=== PATIENT | female | born 1950 | race Caucasian/White ===

== ENCOUNTER 2018-10-22 14:12 | Observation (INO) ==
[2018-10-22] MEDS ORDERED: Isovue-370 500 ML BOTTLE IVP ONE (14:31)
[2018-10-22 14:46] LABS: Hematocrit 39.1 % (35.3-44.9); Hemoglobin 12.8 g/dL (11.5-15.4); Mean Corpuscular HGB Conc 32.7 g/dL (31.6-35.5); Mean Corpuscular Hemoglobin 29.2 pg (28.0-33.3); Mean Corpuscular Volume 89.3 fL (83.0-100.0); Mean Platelet Volume 10.5 fL (9.4-12.4); Platelet Count 240 K/mcL (140-400); Red Blood Count 4.38 M/mcL (3.82-4.97); Red Cell Distribution Width 14.1 % (11.5-14.5)
[2018-10-22 14:58] LABS: INR 1.7; Prothrombin Time 18.9 Seconds (9.4-12.1)
[2018-10-22 15:03] LABS: Bilirubin,Urine Negative (Negative); Blood,Urine Negative (Negative); Clarity,Urine Clear (Clear); Color,Urine Yellow (Yellow); Glucose,Urine (UA) Normal (Normal); Ketones,Urine Negative (Negative); Leukocyte Esterase,Urine Moderate (Negative); Nitrite,Urine Negative (Negative); PH,Urine 6.5 pH Units (5.0-8.0); Protein,Urine Negative (Neg-Trace); Specific Gravity,Urine 1.011 (1.010-1.025); Urobilinogen,Urine Normal (Normal)
[2018-10-22 15:08] LABS: Bacteria,Urine Moderate per hpf (None-Few); Hyaline Casts,Urine None Seen per lpf (None-Few); RBC,Urine 0-3 per hpf (0-3); Squamous Epithelial Cell,Urine Moderate per lpf (None-Few)
--- NOTE | 2018-10-22 15:11 | Emergency Department Note ---
Disposition Clinical Impression: Transient cerebral ischemia Qualifiers: Transient cerebral ischemia type: unspecified Qualified Code(s): G45.9 - Transient cerebral ischemic attack, unspecified UTI (urinary tract infection) Qualifiers: Urinary tract infection type: acute cystitis Hematuria presence: without hematuria Qualified Code(s): N30.00 - Acute cystitis without hematuria Disposition: Admitted As Inpatient Condition: Good Referrals: Daljit Keyes DO [Primary Care Provider] - Forms: ED Satisfaction Letter Time of Disposition: 16:30 General Adult HPI - General Stated complaint: Dizzy, abnormal bp, slurred speech Time Seen by Provider: 10/22/18 14:22 Source: patient, family Mode of arrival: private vehicle Limitations: no limitations Nursing Notes Reviewed: Yes Vital Signs Reviewed: Yes - History of Present Illness HPI Narrative: 68F with Pmhx of diabetes, HTN, afib, that developed right leg weakness and slurred speech today at 1100. She states that she felt like she was having d ifficulty finding the right words, and was having trouble putting on her right sock and moving her right foot. She notes a previous stroke in 2012 with no residual deficits. She reports a remote hx of intracranial bleed in 1994. She takes Xarelto at night, took her dose last night. Initial NIHSS 2 for right lower leg ataxia and mild right lower limb weakness wherein the limb did not hit the bed but did drift before the end of five seconds. She is also complaining of labile blood pressures and blood sugars for the last two weeks with associated dizziness. Pain Scale: 0 - Related Data Home Medications Medication Instructions Recorded Confirmed Albuterol Sulfate [Proair Hfa] 2 puff IH Q4H PRN 10/22/18 10/22/18 Benazepril HCl 20 mg PO BID 10/22/18 10/22/18 Cyclobenzaprine [Flexeril] 10 mg PO TID PRN 10/22/18 10/22/18 Doxazosin Mesylate [Cardura] 2 mg PO BID 10/22/18 10/22/18 Fenofibrate Nanocrystallized 80 mg PO BID 10/22/18 10/22/18 [Fenofibrate] Hydralazine HCl 50 mg PO BID 10/22/18 10/22/18 Insulin Glargine,Hum.rec.anlog 20 unit SQ HS 10/22/18 10/22/18 [Lantus Solostar] Insulin LISPRO [Humalog Kwikpen 0 unit SQ TIDWM 10/22/18 10/22/18 U-100] Ipratropium/Albuterol Neb [Duoneb] 3 ml IH Q6HR PRN 10/22/18 10/22/18 Levothyroxine Sodium 50 mcg PO 0630 10/22/18 10/22/18 Metoprolol Tartrate 100 mg PO BID 10/22/18 10/22/18 Multivit-Min/FA/Lycopen/Lutein 1 each PO DAILY 10/22/18 10/22/18 [Centrum Silver Tablet] Omeprazole [PriLOSEC] 20 mg PO DAILY 10/22/18 10/22/18 Rivaroxaban [Xarelto] 20 mg PO QPM 10/22/18 10/22/18 Torsemide [Demadex] 20 mg PO BID 10/22/18 10/22/18 Allergies Allergy/AdvReac Type Severity Reaction Status Date / Time prednisone Allergy See Verified 10/08/17 08:52 Comments Review of Systems: In addition to that documented in the HPI above, the additional ROS was obtained: Constitutional: Denies fevers or chills Eyes: Denies vision changes ENMT: Denies sore throat CV: Denies chest pain Resp: Denies SOB GI: Denies vomiting or diarrhea : Denies painful urination MSK: Denies recent trauma Skin: Denies new rashes Neuro: Denies new numbness or tingling Reports: new right leg/foot weakness, difficulty with word finding since 1100 today Endocrine: Denies unexpected weight loss Heme: Denies bleeding disorders Past Medical History - Past Medical History Attestation: Yes The following information was validated with the patient. Medical history: Reports: arthritis, asthma, atrial fibrillation, CHF, COPD, CVA, diabetes, GERD, hyperlipidemia, hypertension, thyroid disease Surgical history: Reports: appendectomy, hysterectomy, thyroidectomy Psychiatric history: Reports: no psych history - Social History Smoking Status: Never smoker Alcohol use: Reports: none Drug use: Reports: none Physical Exam General: A&O x 3. Appears anxious. Well developed, well nourished. Head: atraumatic, normocephalic. ENT: No conjunctival injection, no scleral icterus. EOMI. Oropharynx non- erythematous. mucous membranes moist. Neuro: No speech deficit, no facial droop, mentating well. BUE Str 5/5. LLE Str 5/5, RLE Str 4/5. CN II, IV-XII intact. CN III not intact - pupils do not react to light or accommodation bilaterally. Cerebellar testing intact with [id number], but with heel to napoles, has some difficulty with right leg moving against left napoles. NIHSS 2. Pulm: Lungs CTAB A/P. No wheezes, rales, ronchi. Cardio: RRR no m/r/g. Chest not tender to palpation. Abd: Soft, non-distended. Normoactive bowel sounds. Non-tender to palpation. No guarding. Non rigid. Extremities: Radial pulses 2+ vicente, dorsalis pedis/posterior tibialis 2+ vicente. No LE edema. No cyanosis, clubbing. Skin: warm, dry, intact. No rashes. Psych: Appropriate mood and affect. Answers questions appropriately. Cooperative with exam. - General General appearance: alert, in no apparent distress Course - Consultations Consultation #1: Spoke with Dr. Nixon Syed, Nephrology, about the pt's renal function and administration of contrast during stroke workup with CTA. He advised fluids, holding nephrotoxic medications such as YELENA/ARB, COX2 inhibitors, and diuretics. Will consult his service with formal consult order. Time: 15:42 Consultation #2: Spoke with Dr. Brandon Motley, neurology, and advised them that patient was here for stroke/tia workup. Time: 16:30 Vital Signs Temperature 98.2 F 10/22/18 14:28 Pulse Rate 112 10/22/18 14:28 Respiratory Rate 15 10/22/18 14:28 Blood Pressure 160/99 10/22/18 14:28 O2 Sat by Pulse Oximetry 98 10/22/18 14:28 Temperature 98.2 F 10/22/18 14:28 Pulse Rate 93 10/22/18 15:00 Respiratory Rate 15 10/22/18 15:00 Blood Pressure 180/60 10/22/18 15:00 O2 Sat by Pulse Oximetry 98 10/22/18 14:28 Oxygen Delivery Oxygen Delivery Room Air Medical Decision Making - [facility] Narrative Medical decision making narrative: [facility] neurology was consulted and Dr. Lamont Boogie responded and performed a bedside neurologic exam with the stroke robot. He came to the same conclusion we did that she was not a candidate for tPA, had a low NIHSS of 2, did not need to be transferred to [facility] for further workup, but could benefit from an inpatient admission here for further neurologic workup. Pt was given 1L NaCl and 325 PO ASA while in the department as well as 1g of rocephin while in the department for presumed UTI. I consulted nephrology and neurology, see course for full details of consults. Pt was admitted to hospitalist, Dr Brambila, who agreed to accept the pt to their service. Spoke directly with admitting physician and communicated the results and recommendations from the consults. Patient was give n an opportunity to ask questions at bedside and all of their concerns were addressed. Patient verbalized understanding and agreement with plan of care. Pt remained stable while in the department. - Medical Records Medical records reviewed: Yes I reviewed the patient's medical records. - Lab Data Lab results reviewed: Yes I reviewed the patient's lab results. Result diagrams: 10/22/18 14:35 10/22/18 14:35 Lab Results 10/22/18 10/22/18 10/22/18 Range/Units 14:35 14:35 14:35 WBC 6.7 (4.3-11.1) K/mcL RBC 4.38 (3.82-4.97) M/mcL Hgb 12.8 (11.5-15.4) g/dL Hct 39.1 (35.3-44.9) % MCV 89.3 (83.0-100.0) fL MCH 29.2 (28.0-33.3) pg MCHC 32.7 (31.6-35.5) g/dL RDW 14.1 (11.5-14.5) % Plt Count 240 (140-400) K/mcL MPV 10.5 (9.4-12.4) fL PT 18.9 H (9.4-12.1) Seconds INR 1.7 APTT 37.0 H (26.0-36.0) Seconds Sodium 138 (136-145) mEq/L Potassium 3.4 L (3.5-5.1) mEq/L Chloride 95 L (98-107) mEq/L Carbon Dioxide 33 H (23-29) mEq/L BUN 53 H (8-23) mg/dL Creatinine 1.64 H (0.60-1.20) mg/dL Est GFR ( Amer) 38 L (> 60) Est GFR (Non-Af Amer) 31 L (> 60) BUN/Creatinine Ratio 32 H (6-26) Glucose 204 H (70-105) mg/dL Calculated Osmolality 306 H (280-300) Calcium 9.6 (8.6-10.3) mg/dL Magnesium 2.1 (1.6-2.6) mg/dL Troponin I 0.03 (< 0.04) ng/mL Urine Color (Yellow) Urine Clarity (Clear) Urine pH (5.0-8.0) pH Units Ur Specific [place] (1.010-1.025) Urine Protein (Neg-Trace) mg/dL Urine Glucose (UA) (Normal) mg/dL Urine Ketones (Negative) mg/dL Urine Blood (Negative) Urine Nitrite (Negative) Urine Bilirubin (Negative) Urine Urobilinogen (Normal) mg/dL Ur Leukocyte Esterase (Negative) Urine Microscopic RBC (0-3) per hpf Urine Microscopic WBC (0-3) per hpf Ur Squamous Epith Cells (None-Few) per lpf Urine Bacteria (None-Few) per hpf Hyaline Casts (None-Few) per lpf Ur Culture Indicated? (NO) 10/22/18 Range/Units 14:52 WBC (4.3-11.1) K/mcL RBC (3.82-4.97) M/mcL Hgb (11.5-15.4) g/dL Hct (35.3-44.9) % MCV (83.0-100.0) fL MCH (28.0-33.3) pg MCHC (31.6-35.5) g/dL RDW (11.5-14.5) % Plt Count (140-400) K/mcL MPV (9.4-12.4) fL PT (9.4-12.1) Seconds INR APTT (26.0-36.0) Seconds Sodium (136-145) mEq/L Potassium (3.5-5.1) mEq/L Chloride (98-107) mEq/L Carbon Dioxide (23-29) mEq/L BUN (8-23) mg/dL Creatinine (0.60-1.20) mg/dL Est GFR ( Amer) (> 60) Est GFR (Non-Af Amer) (> 60) BUN/Creatinine Ratio (6-26) Glucose (70-105) mg/dL Calculated Osmolality (280-300) Calcium (8.6-10.3) mg/dL Magnesium (1.6-2.6) mg/dL Troponin I (< 0.04) ng/mL Urine Color Yellow (Yellow) Urine Clarity Clear (Clear) Urine pH 6.5 (5.0-8.0) pH Units Ur Specific Cisco 1.011 (1.010-1.025) Urine Protein Negative (Neg-Trace) mg/dL Urine Glucose (UA) Normal (Normal) mg/dL Urine Ketones Negative (Negative) mg/dL Urine Blood Negative (Negative) Urine Nitrite Negative (Negative) Urine Bilirubin Negative (Negative) Urine Urobilinogen Normal (Normal) mg/dL Ur Leukocyte Esterase Moderate H (Negative) Urine Microscopic RBC 0-3 (0-3) per hpf Urine Microscopic WBC 5-15 H (0-3) per hpf Ur Squamous Epith Cells Moderate H (None-Few) per lpf Urine Bacteria Moderate H (None-Few) per hpf Hyaline Casts None Seen (None-Few) per lpf Ur Culture Indicated? YES A (NO) - Radiology Data Radiology results reviewed: Yes I reviewed the patient's radiology results. Chest X-Ray 10/22/18 14:31 IMPRESSION: No acute cardiopulmonary findings. D/ / Diana Lopez MD / Diana Lopez MD Interpreting Provider: Diana Lopez MD Head CT 10/22/18 14:31 IMPRESSION: 1. No acute intracranial abnormality. These findings were discussed with Todd Lopez at 2:48 p.m. 10/22/2018. 2. Chronic small vessel ischemic disease. D/ / Sathish Luo MD / Sathish Luo MD Interpreting Provider: Sathish Luo MD Head CTA 10/22/18 14:31 IMPRESSION: 1. Approximately 40% right and 50% left internal carotid artery stenosis by NASCET criteria. 2. Mild to moderate bilateral cavernous carotid artery stenosis due to calcified atherosclerotic disease. 3. 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 4. No additional hemodynamically significant stenosis or branch occlusion in the intracranial arterial circulation. D/ / 10/22/2018 15:23:39 David Harrington MD / aleksandra Interpreting Provider: David Harrington MD Neck CTA 10/22/18 14:32 IMPRESSION: 1. Approximately 40% right and 50% left internal carotid artery stenosis by NASCET criteria. 2. Mild to moderate bilateral cavernous carotid artery stenosis due to calcified atherosclerotic disease. 3. 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 4. No additional hemodynamically significant stenosis or branch occlusion in the intracranial arterial circulation. D/ / 10/22/2018 15:23:39 David Harrington MD / aleksandra Interpreting Provider: David Harrington MD - EKG Data EKG #1 EKG attestation: Yes I reviewed and interpreted this EKG. EKG results narrative: Heart rate 88, rhythm sinus, axis normal. NE 217 and prolonged, QRS 146 and prolonged, QTc 527 and prolonged. LBBB present, no clinically significant ST elevation or depression based on Sgarbossa's criteria. Attestation Statement - Attestation Attestation: I, Todd Lopez DO, examined this patient [id number] and my medical decision-making was reviewed with Dr. Aleida Johnson, Resident Physician. I agree with the documented findings, disposition and treatment plan as described except to the extent set forth below. I personally supervised and was present for the ventura/critical portions of the procedures completed by the resident documented below. Please see my progress notes for details. NIH Stroke Scale - Level of Consciousness LOC: Alert - LOC Questions LOC Questions: Answers both correctly - LOC Commands LOC Commands: Performs both correctly - Best Gaze Best Gaze: Normal - Visual Visual: No visual loss - Facial Palsy Facial Palsy: Normal - Motor Arms Motor Arm-Left: No drift for 10 seconds Motor Arm-Right: No drift for 10 seconds - Motor Legs Motor Leg-Left: No drift for 5 seconds Motor Leg-Right: Drift, does NOT hit bed - Limb Ataxia Limb Ataxia: Present in ONE limb - Sensory Sensory: Normal - Best Language Best Language: No aphasia - Dysarthria Dysarthria: Normal - Extinction and Inattention Extinction and Inattention: Normal - NIHSS Total Score NIHSS Total Score: 2
--- NOTE | 2018-10-22 15:20 | Emergency Department Note ---
Disposition Clinical Impression: UTI (urinary tract infection) Transient cerebral ischemia Qualifiers: Transient cerebral ischemia type: unspecified Qualified Code(s): G45.9 - Transient cerebral ischemic attack, unspecified Disposition: Admitted As Inpatient Condition: Good Referrals: Daljit Keyes DO [Primary Care Provider] - Forms: ED Satisfaction Letter Time of Disposition: 17:01 General Adult HPI - General Chief complaint: ED Neuro Symptoms/Deficit Stated complaint: Dizzy, abnormal bp, slurred speech Time Seen by Provider: 10/22/18 14:22 Source: patient, family Mode of arrival: private vehicle Limitations: no limitations - History of Present Illness Pain Scale: 0 - Related Data Home Medications Medication Instructions Recorded Confirmed Albuterol Sulfate [Proair Hfa] 2 puff IH Q4H PRN 10/22/18 10/22/18 Benazepril HCl 20 mg PO BID 10/22/18 10/22/18 Cyclobenzaprine [Flexeril] 10 mg PO TID PRN 10/22/18 10/22/18 Doxazosin Mesylate [Cardura] 2 mg PO BID 10/22/18 10/22/18 Fenofibrate Nanocrystallized 80 mg PO BID 10/22/18 10/22/18 [Fenofibrate] Hydralazine HCl 50 mg PO BID 10/22/18 10/22/18 Insulin Glargine,Hum.rec.anlog 20 unit SQ HS 10/22/18 10/22/18 [Lantus Solostar] Insulin LISPRO [Humalog Kwikpen 0 unit SQ TIDWM 10/22/18 10/22/18 U-100] Ipratropium/Albuterol Neb [Duoneb] 3 ml IH Q6HR PRN 10/22/18 10/22/18 Levothyroxine Sodium 50 mcg PO 0630 10/22/18 10/22/18 Metoprolol Tartrate 100 mg PO BID 10/22/18 10/22/18 Multivit-Min/FA/Lycopen/Lutein 1 each PO DAILY 10/22/18 10/22/18 [Centrum Silver Tablet] Omeprazole [PriLOSEC] 20 mg PO DAILY 10/22/18 10/22/18 Rivaroxaban [Xarelto] 20 mg PO QPM 10/22/18 10/22/18 Torsemide [Demadex] 20 mg PO BID 10/22/18 10/22/18 Allergies Allergy/AdvReac Type Severity Reaction Status Date / Time prednisone Allergy See Verified 10/08/17 08:52 Comments Past Medical History - Past Medical History Medical history: Reports: arthritis, asthma, atrial fibrillation, CHF, COPD, CVA, diabetes, GERD, hyperlipidemia, hypertension, thyroid disease Surgical history: Reports: appendectomy, hysterectomy, thyroidectomy Psychiatric history: Reports: no psych history - Social History Smoking Status: Never smoker Alcohol use: Reports: none Drug use: Reports: none Physical Exam - General Limitations: no limitations General appearance: alert, in no apparent distress Course Vital Signs Temperature 98.2 F 10/22/18 14:28 Pulse Rate 112 10/22/18 14:28 Respiratory Rate 15 10/22/18 14:28 Blood Pressure 160/99 10/22/18 14:28 O2 Sat by Pulse Oximetry 98 10/22/18 14:28 Temperature 98.2 F 10/22/18 14:28 Pulse Rate 93 10/22/18 15:00 Respiratory Rate 15 10/22/18 15:00 Blood Pressure 180/60 10/22/18 15:00 O2 Sat by Pulse Oximetry 98 10/22/18 14:28 Oxygen Delivery Oxygen Delivery Room Air Medical Decision Making - Lab Data Result diagrams: 10/22/18 14:35 10/22/18 14:35 Lab Results 10/22/18 10/22/18 10/22/18 Range/Units 14:35 14:35 14:35 WBC 6.7 (4.3-11.1) K/mcL RBC 4.38 (3.82-4.97) M/mcL Hgb 12.8 (11.5-15.4) g/dL Hct 39.1 (35.3-44.9) % MCV 89.3 (83.0-100.0) fL MCH 29.2 (28.0-33.3) pg MCHC 32.7 (31.6-35.5) g/dL RDW 14.1 (11.5-14.5) % Plt Count 240 (140-400) K/mcL MPV 10.5 (9.4-12.4) fL PT 18.9 H (9.4-12.1) Seconds INR 1.7 APTT 37.0 H (26.0-36.0) Seconds Sodium 138 (136-145) mEq/L Potassium 3.4 L (3.5-5.1) mEq/L Chloride 95 L (98-107) mEq/L Carbon Dioxide 33 H (23-29) mEq/L BUN 53 H (8-23) mg/dL Creatinine 1.64 H (0.60-1.20) mg/dL Est GFR ( Amer) 38 L (> 60) Est GFR (Non-Af Amer) 31 L (> 60) BUN/Creatinine Ratio 32 H (6-26) Glucose 204 H (70-105) mg/dL Calculated Osmolality 306 H (280-300) Calcium 9.6 (8.6-10.3) mg/dL Magnesium 2.1 (1.6-2.6) mg/dL Troponin I 0.03 (< 0.04) ng/mL Urine Color (Yellow) Urine Clarity (Clear) Urine pH (5.0-8.0) pH Units Ur Specific [place] (1.010-1.025) Urine Protein (Neg-Trace) mg/dL Urine Glucose (UA) (Normal) mg/dL Urine Ketones (Negative) mg/dL Urine Blood (Negative) Urine Nitrite (Negative) Urine Bilirubin (Negative) Urine Urobilinogen (Normal) mg/dL Ur Leukocyte Esterase (Negative) Urine Microscopic RBC (0-3) per hpf Urine Microscopic WBC (0-3) per hpf Ur Squamous Epith Cells (None-Few) per lpf Urine Bacteria (None-Few) per hpf Hyaline Casts (None-Few) per lpf Ur Culture Indicated? (NO) 10/22/18 Range/Units 14:52 WBC (4.3-11.1) K/mcL RBC (3.82-4.97) M/mcL Hgb (11.5-15.4) g/dL Hct (35.3-44.9) % MCV (83.0-100.0) fL MCH (28.0-33.3) pg MCHC (31.6-35.5) g/dL RDW (11.5-14.5) % Plt Count (140-400) K/mcL MPV (9.4-12.4) fL PT (9.4-12.1) Seconds INR APTT (26.0-36.0) Seconds Sodium (136-145) mEq/L Potassium (3.5-5.1) mEq/L Chloride (98-107) mEq/L Carbon Dioxide (23-29) mEq/L BUN (8-23) mg/dL Creatinine (0.60-1.20) mg/dL Est GFR ( Amer) (> 60) Est GFR (Non-Af Amer) (> 60) BUN/Creatinine Ratio (6-26) Glucose (70-105) mg/dL Calculated Osmolality (280-300) Calcium (8.6-10.3) mg/dL Magnesium (1.6-2.6) mg/dL Troponin I (< 0.04) ng/mL Urine Color Yellow (Yellow) Urine Clarity Clear (Clear) Urine pH 6.5 (5.0-8.0) pH Units Ur Specific [place] 1.011 (1.010-1.025) Urine Protein Negative (Neg-Trace) mg/dL Urine Glucose (UA) Normal (Normal) mg/dL Urine Ketones Negative (Negative) mg/dL Urine Blood Negative (Negative) Urine Nitrite Negative (Negative) Urine Bilirubin Negative (Negative) Urine Urobilinogen Normal (Normal) mg/dL Ur Leukocyte Esterase Moderate H (Negative) Urine Microscopic RBC 0-3 (0-3) per hpf Urine Microscopic WBC 5-15 H (0-3) per hpf Ur Squamous Epith Cells Moderate H (None-Few) per lpf Urine Bacteria Moderate H (None-Few) per hpf Hyaline Casts None Seen (None-Few) per lpf Ur Culture Indicated? YES A (NO) Attestation Statement - Attestation Attestation: I, Todd Lopez DO, examined this patient [id number] and my medical decision-making was reviewed with Dr. Aleida Johnson, Resident Physician. I agree with the documented findings, disposition and treatment plan as described except to the extent set forth below. I personally supervised and was present for the ventura/critical portions of the procedures completed by the resident documented below. Please see my progress notes for details. 68-year-old female presents emergency room for evaluation of difficulty with speech. Patient also symptoms approximately 11:00 this morning. She she describes them as difficulty with finding words and getting them out of her mouth. She also had some appreciable ataxia to the right upper and right lower extremity. She denies any history of stroke. She does have a poorly controlled blood pressure history. She is currently denying chest pain or shortness of breath. She has not had any nausea vomiting or diarrhea. She had intermittent blurry vision. Denies any headache at this time. Patient has not fallen or injured herself. She has been taking all of your home medications as they are prescribed. Because of the described complaints and timeframe the patient had immediate stroke alert called. Patient will be taken to CT scan for CT angiog deidra of the head and neck and then point CT of the head along with consult with [facility]. NIH stroke scale that was collected on initial presentation was a 2. Patient is otherwise resting comfortably in the bed. She is tangential in conversation wall evaluating her. Her pupils are equal round reactive extracted muscles are intact. Oropharynx is patent. Trachea is midline. Lungs are clear heart is regular. Abdomen is soft no pulsatile masses or lesions. Extremities are otherwise normal outside of the above-mentioned findings during the stroke evaluation. No signs of pitting edema or swelling. Pulses are intact and patient is appropriate and mentating appropriately at this time. Disposition will be completed after full workup and treatment course I been established. See detailed documentation the physical exam, medical intervention, medical decision-making and disposition in the resident physician's note. 45 minutes of critical care will be applied the patient's treatment course secondary to multidisciplinary intervention as well as consideration for TPA and thrombolytic. 1515 Patient was reviewed by the on-call neurologist Dr. ramos from [facility]. Patient is on Xarelto. No TPA is recommended at this point. Patient was CT angiographies completed and admission process established. Does not appear to be a large vessel related lesion at this point. Patient will be evaluated for other potential sources including infection show abnormality. Disposition pending. Patient does have chronic renal insufficiency with a GFR 31. Nephrology will be consult that secondary to the history of renal insufficiency as well as the contrast being provided here today to evaluate for stroke treatment. Patient will be provided with fluids and magnesium will be tested secondary to the slightly low potassium the patient will be treated for acute urinary tract infection. Disposition pending full workup. Patient will most likely require admission. 1635 Patient is otherwise stable. Hospitalist Dr. krause. Patient has been provided with an aspirin here in the emergency room. No other emergent intervention is required. Patient is otherwise clinically stable will be admitted at this time for strokelike presentation with possible urinary tract infection. Patient has baseline laboratory evaluation. Potassium will not be provided yet at this time until the remainder the labs are collected. Patient is otherwise clinically stable with urinary tract infection and generalized malaise along with concern for possible TIA. Patient will be monitored here in the emergency department until the admission process is completed.
[2018-10-22 15:24] LABS: Troponin I 0.03 ng/mL (< 0.04)
[2018-10-22] MEDS ORDERED: Aspirin 325 MG TABLET PO ONE (15:30)
[2018-10-22 15:34] LABS: Calcium 9.6 mg/dL (8.6-10.3); Potassium 3.4 mEq/L (3.5-5.1)
[2018-10-22] MEDS ORDERED: 0.9 % Sodium Chloride 1,000 ML IVC ONE (15:36)
[2018-10-22] MEDS ORDERED: cefTRIAXone 1,000 MG in Water for inj. (sterile) 20 ML 10 ML IVP ONE (15:36)
--- NOTE | 2018-10-22 16:17 | Internal Med History&Physical ---
Date of Encounter: 10/22/18 Time of Encounter: 16:13 Internal Medicine - H&P: HPI Chief complaint: slurred speech Admitted From: Emergency Dept History of present illness: Ms. Gambino is a 68 year old female atrial fibrillation, CHF, COPD, CVA in 2012 with no residual deficit, diabetes, GERD, hyperlipidemia, diabetes mellitus, hypertension, thyroid disease Was brought to ER with complaint of sudden development of right leg weakness and slurred speech today at 1100. She states that she felt like she was having difficulty finding the right words, and was having trouble putting on her right sock and moving her right foot. In the ER patient was found to be hypertensive slight tachycardia, initial lab with no acute finding except slight elevated creatinine, high blood glucose level, abnormal urine analysis. Chest x-ray with no acute finding. CT angiography head and neck with no acute finding. ER physician did consult with [facility]. NIH stroke scale that was collected on initial presentation was a 2. After getting evaluated [facility] neurology team did not find a candidate for TPA thrombolytic and advised to get admitted to this hospital. ER physician with consult to neurologist who is okay for the admission. Patient also had low GFR with history of CKD therefore ER physician that consult to in home sales representative for further management as patient had exposure to contrast while evaluating the stroke. Denies fever or chills nausea vomiting headache vision change loss of consciousness seizure activity chest pain shortness of breath abdominal pain diarrhea Redness recent trauma urinary complaint tingling numbness. She complained of right leg weakness with difficulty finding the words and transient blurry vision since 11 AM today-improving now Past Med Surg Social Fam HX - Past Medical History Medical history: arthritis, asthma, atrial fibrillation, CHF, COPD, CVA, diabetes, GERD, hyperlipidemia, hypertension, thyroid disease Additional medical history: hypothyroid. stageIII kidney disease Psychiatric history: no psych history - Past Surgical History Surgical History: appendectomy, hysterectomy, thyroidectomy Additional surgical history: foot surgery. shoulder surgery. breast bx - Social History Smoking Status: Never smoker Alcohol use: none Drug use: none Internal Medicine - H&P: Meds Albuterol Sulfate [Proair Hfa] 2 puff IH Q4H PRN 10/22/18 [History] Benazepril HCl 20 mg PO BID 10/22/18 [History] Cyclobenzaprine [Flexeril] 10 mg PO TID PRN 10/22/18 [History] Doxazosin Mesylate [Cardura] 2 mg PO BID 10/22/18 [History] Fenofibrate Nanocrystallized [Fenofibrate] 80 mg PO BID 10/22/18 [History] Hydralazine HCl 50 mg PO BID 10/22/18 [History] Insulin Glargine,Hum.rec.anlog [Lantus Solostar] 20 unit SQ HS 10/22/18 [History] Insulin LISPRO [Humalog Kwikpen U-100] 0 unit SQ TIDWM 10/22/18 [History] Ipratropium/Albuterol Neb [Duoneb] 3 ml IH Q6HR PRN 10/22/18 [History] Levothyroxine Sodium 50 mcg PO 0630 10/22/18 [History] Metoprolol Tartrate 100 mg PO BID 10/22/18 [History] Multivit-Min/FA/Lycopen/Lutein [Centrum Silver Tablet] 1 each PO DAILY 10/22/18 [History] Omeprazole [PriLOSEC] 20 mg PO DAILY 10/22/18 [History] Rivaroxaban [Xarelto] 20 mg PO QPM 10/22/18 [History] Torsemide [Demadex] 20 mg PO BID 10/22/18 [History] Allergy/AdvReac Type Severity Reaction Status Date / Time prednisone Allergy See Verified 10/08/17 08:52 Comments All Systems PM: A 10-system review of systems was performed and is negative for pertinent findings except as documented above in the HPI. - Constitutional Vitals: Temp Pulse Resp BP Pulse Ox 98.2 F 93 15 180/60 98 10/22/18 14:28 10/22/18 15:00 10/22/18 15:00 10/22/18 15:00 10/22/18 14:28 Exam: General appearance: No acute distress Head exam: Atraumatic Eye exam: EOMI, sluggishly reactive pupil bilaterally on examination ENT exam: Moist oral mucosa Neck nontender, supple Respiratory exam: Clear to auscultation bilaterally Cardiovascular exam: Regular rate and rhythm, no systolic murmur Abdominal exam: Soft, nontender, nondistended, positive bowel sounds Extremities exam: No calf tenderness, no pedal edema Present: Skin-no rash, warm, dry, intact Neurological exam: Alert, awake, oriented 3, CN II-XII intact except cranial nerve third-people do not react to light or accommodation bilaterally, n0 No facial droop. Motor-right lower extremity for by 5 otherwise 5 x 5 in all other extremities . Speech slow but clear. Gait is unsteady- Internal Med - H&P Results - Labs CBC & Chem 7: 10/22/18 14:35 10/22/18 14:35 Labs: Short CBC 10/22/18 Range/Units 14:35 WBC 6.7 (4.3-11.1) K/mcL Hgb 12.8 (11.5-15.4) g/dL Hct 39.1 (35.3-44.9) % Plt Count 240 (140-400) K/mcL BMP 10/22/18 14:35 Sodium 138 Potassium 3.4 L Chloride 95 L Carbon Dioxide 33 H BUN 53 H Creatinine 1.64 H Glucose 204 H Calcium 9.6 Cardiac Enzymes 10/22/18 Range/Units 14:35 Troponin I 0.03 (< 0.04) ng/mL Urine 10/22/18 Range/Units 14:52 Urine Color Yellow (Yellow) Urine Clarity Clear (Clear) Urine pH 6.5 (5.0-8.0) pH Units Ur Specific [place] 1.011 (1.010-1.025) Urine Protein Negative (Neg-Trace) mg/dL Urine Glucose (UA) Normal (Normal) mg/dL - Impressions ITS Impressions Chest X-Ray 10/22/18 14:31 IMPRESSION: No acute cardiopulmonary findings. D/ / Diana Lopez MD / Diana Lopez MD Interpreting Provider: Diana Lopez MD Head CT 10/22/18 14:31 IMPRESSION: 1. No acute intracranial abnormality. These findings were discussed with Todd Lopez at 2:48 p.m. 10/22/2018. 2. Chronic small vessel ischemic disease. D/ / Sathish Luo MD / Sathish Luo MD Interpreting Provider: Sathish Luo MD Head CTA 10/22/18 14:31 IMPRESSION: 1. Approximately 40% right and 50% left internal carotid artery stenosis by NASCET criteria. 2. Mild to moderate bilateral cavernous carotid artery stenosis due to calcified atherosclerotic disease. 3. 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 4. No additional hemodynamically significant stenosis or branch occlusion in the intracranial arterial circulation. D/ / 10/22/2018 15:23:39 David Harrington MD / [email or web address] Interpreting Provider: David Harrington MD Neck CTA 10/22/18 14:32 IMPRESSION: 1. Approximately 40% right and 50% left internal carotid artery stenosis by NASCET criteria. 2. Mild to moderate bilateral cavernous carotid artery stenosis due to calcified atherosclerotic disease. 3. 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 4. No additional hemodynamically significant stenosis or branch occlusion in the intracranial arterial circulation. D/ / 10/22/2018 15:23:39 David Harrington MD / earmary Interpreting Provider: David Harrington MD - Assessment and Plan (1) Transient cerebral ischemia Current Visit: Yes Status: Acute Assessment and plan: History of CVA with multiple risk factor. Right lower extremity weakness with slurred is reactive to pupil. CT head with no acute finding. Patient got evaluated by [facility] neuro team to ER physician and did not find candidate for TPA. Will admit patient in telemetry bed for further neuro workup. MRI brain, carotid Doppler, echocardiogram ordered. I talked to neurologist and he advise to continue Xarelto but hold aspirin for now while awaiting MRI report. Fasting lipid profile ordered. Speech evaluation, nothing by mouth, PTOT evaluation. utility worker for discharge plan. Neuro check every 4 hours. Fall aspiration seizure precaution. Patient has permissive hypertension-will give antihypertensive medicine if systolic blood pressure more than 220 and diastolic more than 110. Qualifiers: Transient cerebral ischemia type: unspecified Qualified Code(s): G45.9 - Transient cerebral ischemic attack, unspecified (2) ANTONIO (acute kidney injury) Current Visit: Yes Status: Acute Assessment and plan: Baseline creatinine 1.5 in August 2018. History of CK D. ER physician consulted in home sales representative as patient had exposure of diarrhea in the ER. Product Management Analyst advise gentle hydration normal saline 75 per hour, strict I&O's BMP monitoring. Avoid nephrotoxic drugs such as YELENA inhibitor, nsaids, Lasix for now. (3) A-fib Current Visit: Yes Status: Acute Assessment and plan: Normal sinus rhythm. Patient takes beta edgar and xarelto at home. Will give metoprolol IV when necessary to control heart rate and continue anticoagulation therapy. Qualifiers: Atrial fibrillation type: chronic Qualified Code(s): I48.2 - Chronic atrial fibrillation (4) Diabetes mellitus Current Visit: Yes Status: Acute Assessment and plan: Hemoglobin A1c ordered. Accu-Chek every 6 hours while nothing by mouth, SSI m edium sliding scale. Continue home dose of basal insulin. Needs good control and blood glucose level. Nothing by mouth for now but need speech evaluation before starting the diet Qualifiers: Diabetes mellitus type: type 2 Diabetes mellitus jail insulin use: with jail use Diabetes mellitus complication status: with unspecified complications Qualified Code(s): E11.8 - Type 2 diabetes mellitus with unspecified complications; Z79.4 - custodial (current) use of insulin (5) UTI (urinary tract infection) Current Visit: Yes Status: Acute Assessment and plan: Abnormal urine analysis. Normal white count. Patient had increased urine frequency but no other urinary complaint. Rocephin IV started for empiric treatment. Urine culture ordered Qualifiers: Urinary tract infection type: acute cystitis Hematuria presence: without hematuria Qualified Code(s): N30.00 - Acute cystitis without hematuria (6) DVT prophylaxis Current Visit: Yes Status: Acute Assessment and plan: xarelto - Time Spent With Patient Total time spent is greater than 50% in coordination of care (as documented) at patient's floor/unit and/or counseling patient:
[2018-10-22 16:37] LABS: Magnesium 2.1 mg/dL (1.6-2.6)
[2018-10-22] MEDS ORDERED: Naloxone 0.4 MG/ML INJ IVP PRN (16:51)
[2018-10-22] MEDS ORDERED: Ondansetron 4 MG/2 ML VIAL IVP PRN (16:51)
[2018-10-22] MEDS ORDERED: Ipratropium/Albuterol Neb 3 ML IH PRN (16:55)
[2018-10-22] MEDS ORDERED: *HR* Dextrose 50 % in Water (Syg) 50 ML SYRINGE IVP PRN (17:03)
[2018-10-22] MEDS ORDERED: D5% in Water 1,000 ML IVC PRN (17:03)
[2018-10-22] MEDS ORDERED: Dextrose Gel 15 GM/37.5 ML TUBE PO PRN ×2 (17:03)
[2018-10-22] MEDS ORDERED: *HR* Metoprolol 5 MG/5 ML VIAL IVP PRN (17:07)
[2018-10-22 17:34] LABS: Estimated Average Glucose 229 mg/dl; Hemoglobin A1C 9.6 %
[2018-10-22] MEDS ORDERED: *HR* Rivaroxaban 15 MG TABLET PO SCH (18:00)
[2018-10-22] MEDS: 0.9 % Sodium Chloride 1,000 ML IVC SCH (18:44)
[2018-10-22] MEDS: Insulin LISPRO 300 UNITS/3 ML VIAL SQ SCH (18:58)
[2018-10-22] MEDS ORDERED: Insulin DETEMIR 100 UNIT/ML X5UNITS SQ SCH (21:00)
[2018-10-23] MEDS: Insulin LISPRO 300 UNITS/3 ML VIAL SQ SCH ×3 (02:31→11:36)
[2018-10-23] MEDS ORDERED: *HR* FentaNYL (PF) 100 MCG/2 ML VIAL IVP ONE (02:55)
[2018-10-23 03:00] LABS: Basophils % 0.6 %; Eosinophils # 0.1 K/mcL (0.0-0.6); Eosinophils % 2.7 %; Hematocrit 34.2 % (35.3-44.9); Hemoglobin 11.1 g/dL (11.5-15.4); Immature Granulocytes % 0.2 % (0-4); Lymphocytes # 1.9 K/mcL (0.6-4.6); Lymphocytes % 40.7 %; Mean Corpuscular HGB Conc 32.5 g/dL (31.6-35.5); Mean Corpuscular Hemoglobin 28.9 pg (28.0-33.3); Mean Corpuscular Volume 89.1 fL (83.0-100.0); Mean Platelet Volume 10.9 fL (9.4-12.4); Monocytes # 0.6 K/mcL (0.0-1.3); Monocytes % 11.6 %; Neutrophils # 2.1 K/mcL (1.6-8.9); Platelet Count 224 K/mcL (140-400); Red Blood Count 3.84 M/mcL (3.82-4.97); Red Cell Distribution Width 14.3 % (11.5-14.5); Segmented Neutrophils % 44.2 %
[2018-10-23 03:18] LABS: Calcium 9.1 mg/dL (8.6-10.3); Chol/HDL Ratio 4.5 (0-4.9); Potassium 3.5 mEq/L (3.5-5.1)
[2018-10-23] MEDS: 0.9 % Sodium Chloride 1,000 ML IVC SCH (07:47)
[2018-10-23] MEDS ORDERED: Pantoprazole 40 MG VIAL IVP SCH (09:00)
--- NOTE | 2018-10-23 12:25 | Nephrology Consult Note ---
Date of Encounter: 10/29/18 Time of Encounter: 11:00 Assessment and Plan (1) CKD (chronic kidney disease), stage III Status: Acute She has a history of chronic kidney disease stage III, and has been followed by Dr. Oscar at [facility]. She just underwent multiple CT scans with IV contrast for a stroke workup last night in the ER. I recommend continuing gentle IV fluids to help reduce the risks for TILA. Multiple randomized controlled trials and larger meta-analyses h ave shown that Mucomyst is no better than placebo; so I have not started nor recommended it. In general I recommend following a renal protective strategy by avoiding concomitant nephrotoxins, strict I's and O's, daily weights, and holding medications I could worsen her renal function. Typically serum creatinine will spike approximately 48-72 hours after IV contrast exposure. So she will need to have continued renal function lab monitoring. This should be done in the hospital or at least soon thereafter. If she is rapidly discharged, I would recommend she have labs checked soon and to follow up with her primary Lens Examiner soon. Thank you for consult in the [facility] group on this complex pt who required extensive E/M and complex MDM. Will follow with you. (2) Labile hypertension Status: Acute See above (3) Morbid obesity Status: Acute Noted on exam and vitals. (4) Hypokalemia Status: Acute Replete as needed (5) Anemia Status: Acute Anemia and in the setting of CKD, I recommend a goal Hgb of 10-11. Will monitor while admitted. If a GIB / blood loss anemia work-up is needed, I would defer that to the primary team. Qualifiers: Anemia type: unspecified type Qualified Code(s): D64.9 - Anemia, unspecified History of Present Illness - Reason for Consult Consult date: 10/22/18 Chronic Kidney Disease Requesting physician: Aleida Johnson - Chief Complaint CKD and s/p CVA work up with IV contrast enhanced CTs - History of Present Illness The patient is a very pleasant 68-year-old female with a past medical history of chronic kidney disease stage III (followed by [facility]), hypertension, and etc. The [facility] group was consulted because she has a history of chronic kidney disease and recently underwent a stroke workup that exposure to IV contrast agents. She did not affirm taking NSAIDs [id number] recently. She did not affirm having nausea, vomiting, diarrhea, chest pain, shortness of breath, but did report weakness on one side just prior to admission. She could not describe any palliative or provocative factors. She was worked up in the [facility] emergency department. She affirmed that she was able to eat and drink fluids without difficulty in swallowing. Past Med Surg Social Fam HX - Past Medical History Medical history: arthritis, asthma, atrial fibrillation, CHF, COPD, CVA, diabetes, GERD, hyperlipidemia, hypertension, thyroid disease Additional medical history: hypothyroid. stageIII kidney disease Psychiatric history: no psych history - Past Surgical History Surgical History: appendectomy, hysterectomy, thyroidectomy Additional surgical history: foot surgery. shoulder surgery. breast bx - Social History Smoking Status: Never smoker Alcohol use: none Drug use: none - Family History Father Living Status: Hx Family Cardiac Disorders: Yes Hx Family Endocrine Disorder: Yes Mother Living Status: Hx Family Cancer: Yes Medications and Allergies Albuterol Sulfate [Proair Hfa] 2 puff IH Q4H PRN 10/22/18 [History] Benazepril HCl 20 mg PO BID 10/22/18 [History] Cyclobenzaprine [Flexeril] 10 mg PO TID PRN 10/22/18 [History] Fenofibrate Nanocrystallized [Fenofibrate] 80 mg PO BID 10/22/18 [History] Insulin Glargine,Hum.rec.anlog [Lantus Solostar] 20 unit SQ HS 10/22/18 [History] Insulin LISPRO [Humalog Kwikpen U-100] 0 unit SQ TIDWM 10/22/18 [History] Ipratropium/Albuterol Neb [Duoneb] 3 ml IH Q6HR PRN 10/22/18 [History] Levothyroxine Sodium 50 mcg PO 0630 10/22/18 [History] Metoprolol Tartrate 100 mg PO BID 10/22/18 [History] Multivit-Min/FA/Lycopen/Lutein [Centrum Silver Tablet] 1 each PO DAILY 10/22/18 [History] Omeprazole [PriLOSEC] 20 mg PO DAILY 10/22/18 [History] Rivaroxaban [Xarelto] 20 mg PO QPM 10/22/18 [History] Torsemide [Demadex] 20 mg PO BID 10/22/18 [History] Aspirin 81 mg PO DAILY #30 tab.chew 10/23/18 [Rx] Allergy/AdvReac Type Severity Reaction Status Date / Time morphine Allergy See Verified 10/22/18 18:06 Comments prednisone Allergy See Verified 10/08/17 08:52 Comments sulfamethoxazole Allergy Blister Verified 10/22/18 18:06 [From Bactrim] trimethoprim [From Bactrim] Allergy Blister Verified 10/22/18 18:06 Review of Systems All Systems: reviewed and no additional remarkable complaints except as stated Exam - Vital Signs Vital signs: Initial Vital Signs Temp Pulse Resp BP Pulse Ox 98.2 F 112 15 160/99 98 10/22/18 14:28 10/22/18 14:28 10/22/18 14:28 10/22/18 14:28 10/22/18 14:28 Vital Signs - Last 8 Hours Temp Pulse Resp BP Pulse Ox 10/23/18 11:25 97.9 F 94 16 176/96 97 10/23/18 07:46 97.7 F 96 16 146/95 98 Intake and Output 10/22/18 10/23/18 10/23/18 23:59 07:59 15:59 Intake Total 2009 214 / 2224 Balance 2009 Intake: IV Fluids 2009 0.9 % Sodium Chloride 1,000 ML 1999 @ 75 mls/hr IVC .[id number] [facility] Rx #:[id number] Rocephin 1,000 MG In Water for inj. (sterile) 10 ML @ 600 mls/ hr IVP ONCE ONE Rx#:[id number] Oral 120 / 120 Other: Meal Breakfast Percent of Meal Consumed 80% # Voids 1 Weight 111 kg Blood Glucose* 260 100 249 Patient Weight 10/23/18 23:59 Weight 111 kg - General Appearance General appearance: well-developed, well-nourished, appears started age, obese EENT: ATNC, mucous membranes moist Neck: no JVD Respiratory: clear Cardiology: edema (trace LE edema b/l), irregular rhythm Gastrointestinal: no tenderness, obese Integumentary: warm and dry Neurologic: no focal deficit, no asterixis, alert and oriented x3 Musculoskeletal: no erythema, no cyanosis Psychiatric: cooperative (but anxious appearing) Results - Lab Results 10/23/18 01:35 10/23/18 01:35 Most recent lab results 10/23/18 01:35 Calcium 9.1 Consult Discharge Plan - Plan Instructions: Aspirin (By mouth), Atrial Fibrillation (DC), Acute Kidney Injury (DC), Urinary Tract Infection in Women (DC), Chronic Kidney Disease (DC), Diabetes Mellitus Type 2 in Adults (DC), Chronic Hypertension (DC), Anemia (GEN) Referrals: Daljit Keyes DO [Primary Care Provider] - 11/01/18 9:30 am () Prescriptions: Aspirin 81 mg PO DAILY #30 tab.chew
[2018-10-23] MEDS ORDERED: Aspirin 81 MG TAB.CHEW PO SCH (13:00)
--- NOTE | 2018-10-23 13:02 | Electrocardiograph Report ---
[address] [address] Test Date: 2018-10-22 Pat Name: Elysia Gambino Department: EXAM6 Room: 3B48 Gender: F Lease Analyst: : 1950 Requested By: Todd Lopez Order Number: [id number] Reading MD: Jelani Lee Measurements Intervals [place] Rate: 88 P: 94 [place]: 217 QRS: -15 QRSD: 146 T: 97 QT: 435 QTc: 527 Interpretive Statements Sinus rhythm Prolonged [place] interval Left bundle branch block Electronically Signed On 10-23-2018 13:00:30 EDT by Jelani Lee
--- NOTE | 2018-10-23 13:09 | Discharge Summary ---
Date of Encounter: 10/23/18 Time of Encounter: 13:00 - Discharge Diagnosis (1) Transient cerebral ischemia Priority: Primary Status: Acute Assessment and Plan: 68 year old female atrial fibrillation, CHF, COPD, CVA in 2012 with no residual deficit, diabetes, GERD, hyperlipidemia, diabetes mellitus, hypertension, thyroid disease Was brought to ER with complaint of sudden development of right leg weakness and slurred speech today at 1100. She states that she felt like she was having difficulty finding the right words, and was having trouble putting on her right sock and moving her right foot. Pt has history of CVA with multiple risk factor. Right lower extremity weakness with slurred is reactive to pupil. CT head with no acute finding. Patient got evaluated by [facility] neuro team to ER physician and did not find patient was a candidate for TPA. She was admitted and had a CT and MRI head which all came back negative for acute CVA. She was started on aspirin. BP meds were adjusted on discharge. She was discharged home in a stable condition. Had no deficits on discharge Qualifiers: Transient cerebral ischemia type: unspecified Qualified Code(s): G45.9 - Tr ansient cerebral ischemic attack, unspecified (2) ANTONIO (acute kidney injury) Priority: Primary Status: Acute (3) A-fib Priority: Primary Status: Acute Qualifiers: Atrial fibrillation type: chronic Qualified Code(s): I48.2 - Chronic atrial fibrillation (4) Diabetes mellitus Priority: Primary Status: Acute Qualifiers: Diabetes mellitus type: type 2 Diabetes mellitus fpc insulin use: with marine oil terminal superintendent use Diabetes mellitus complication status: with unspecified complications Qualified Code(s): E11.8 - Type 2 diabetes mellitus with unspecified complications; Z79.4 - assisted (current) use of insulin (5) UTI (urinary tract infection) Priority: Primary Status: Acute Qualifiers: Urinary tract infection type: acute cystitis Hematuria presence: without hematuria Qualified Code(s): N30.00 - Acute cystitis without hematuria (6) DVT prophylaxis Priority: Primary Status: Acute Hospital course: Ms. Gambino is a 68 year old female - Time Spent with Patient Total time spent providing and/or coordinating discharge services: - Discharge Medications Prescriptions: New Aspirin 81 mg PO DAILY #30 tab.chew Continued Benazepril HCl 20 mg PO BID Rivaroxaban [Xarelto] 20 mg PO QPM Levothyroxine Sodium 50 mcg PO 0630 Metoprolol Tartrate 100 mg PO BID Cyclobenzaprine [Flexeril] 10 mg PO TID PRN PRN Reason: Muscle Spasm Insulin Glargine,Hum.rec.anlog [Lantus Solostar] 20 unit SQ HS Insulin LISPRO [Humalog Kwikpen U-100] 0 unit SQ TIDWM Omeprazole [PriLOSEC] 20 mg PO DAILY Albuterol Sulfate [Proair Hfa] 2 puff IH Q4H PRN PRN Reason: Shortness Of Breath Fenofibrate Nanocrystallized [Fenofibrate] 80 mg PO BID Ipratropium/Albuterol Neb [Duoneb] 3 ml IH Q6HR PRN PRN Reason: Shortness Of Breath Torsemide [Demadex] 20 mg PO BID Multivit-Min/FA/Lycopen/Lutein [Centrum Silver Tablet] 1 each PO DAILY Discontinued Doxazosin Mesylate [Cardura] 2 mg PO BID Hydralazine HCl 50 mg PO BID Home Medications: Albuterol Sulfate [Proair Hfa] 2 puff IH Q4H PRN 10/22/18 [History] Benazepril HCl 20 mg PO BID 10/22/18 [History] Cyclobenzaprine [Flexeril] 10 mg PO TID PRN 10/22/18 [History] Fenofibrate Nanocrystallized [Fenofibrate] 80 mg PO BID 10/22/18 [History] Insulin Glargine,Hum.rec.anlog [Lantus Solostar] 20 unit SQ HS 10/22/18 [History] Insulin LISPRO [Humalog Kwikpen U-100] 0 unit SQ TIDWM 10/22/18 [History] Ipratropium/Albuterol Neb [Duoneb] 3 ml IH Q6HR PRN 10/22/18 [History] Levothyroxine Sodium 50 mcg PO 0630 10/22/18 [History] Metoprolol Tartrate 100 mg PO BID 10/22/18 [History] Multivit-Min/FA/Lycopen/Lutein [Centrum Silver Tablet] 1 each PO DAILY 10/22/18 [History] Omeprazole [PriLOSEC] 20 mg PO DAILY 10/22/18 [History] Rivaroxaban [Xarelto] 20 mg PO QPM 10/22/18 [History] Torsemide [Demadex] 20 mg PO BID 10/22/18 [History] Aspirin 81 mg PO DAILY #30 tab.chew 10/23/18 [Rx] Allergies/Adverse Reactions: Allergy/AdvReac Type Severity Reaction Status Date / Time morphine Allergy See Verified 10/22/18 18:06 Comments prednisone Allergy See Verified 10/08/17 08:52 Comments sulfamethoxazole Allergy Blister Verified 10/22/18 18:06 [From Bactrim] trimethoprim [From Bactrim] Allergy Blister Verified 10/22/18 18:06 Date of admission: 10/22/18 17:12 Primary care physician: Daljit Keyes DO Consults: 10/22/18 15:48 Consult to Nephrology [CONS] Stat Consulting Provider: [facility] Jennifer/MEERA/CEFERINO/MOSHE Reason for Consult: Elevated creatinine, low GFR, received contrast during C TA today Time Notified: 15:49 Call Completed: Yes 10/22/18 16:42 Consult to Neurology [CONS] Stat Consulting Provider: Neurology [facility] Reason for Consult: TIA/Stroke Workup Time Notified: 16:30 Call Completed: Yes 10/22/18 16:58 Consult to Occupational Therapy [CONS] Routine Comment: Evaluate, develop and implement POC Reason for Consult: Generalized weakness Does patient have active BEDREST order?: No Is patient medically & hemodynamically stable?: Yes Patient assessed for mobility or mobilized this visit?: No Consult to Physical Therapy [CONS] Routine Comment: Evaluate, develop and implement POC Reason for Consult: Generalized weakness Does patient have active BEDREST order?: No Is patient medically & hemodynamically stable?: Yes Patient assessed for mobility or mobilized this visit?: No Consult to Metal Fence Erector [CONS] Routine Reason for SW Consult: Discharge plan 10/22/18 17:00 Consult to Neurology [CONS] Routine Consulting Provider: [facility] Reason for Consult: r/o CVA Call Completed: Yes - Constitutional Vitals: Temp Pulse Resp BP Pulse Ox 97.9 F 94 16 176/96 97 10/23/18 11:25 10/23/18 11:25 10/23/18 11:25 10/23/18 11:25 10/23/18 11:25 Exam: General appearance: No acute distress Head exam: Atraumatic Eye exam: EOMI, sluggishly reactive pupil bilaterally on examination ENT exam: Moist oral mucosa Neck nontender, supple Respiratory exam: Clear to auscultation bilaterally Cardiovascular exam: Regular rate and rhythm, no systolic murmur Abdominal exam: Soft, nontender, nondistended, positive bowel sounds Extremities exam: No calf tenderness, no pedal edema Present: Skin-no rash, warm, dry, intact Neurological exam: Alert, awake, oriented 3, CN II-XII - Patient Status Disposition: Home, Self-Care Condition: Good - Discharge Instructions Instructions: Aspirin (By mouth), Atrial Fibrillation (DC), Acute Kidney Injury (DC), Urinary Tract Infection in Women (DC), Chronic Kidney Disease (DC), Diabetes Mellitus Type 2 in Adults (DC), Chronic Hypertension (DC), Anemia (GEN) Follow Up With: Daljit Keyes DO [Primary Care Provider] - 11/01/18 9:30 am ()
--- NOTE | 2018-10-23 13:11 | Electrocardiograph Report ---
[address] [address] Test Date: 2018-10-22 Pat Name: Elysia Gambino Department: 113 Room: 3B48 Gender: F [employer] Care [employer]: : 1950 Requested By: Jeb Covarrubias Order Number: [id number] Reading MD: Jelani Lee Measurements Intervals [place] Rate: 89 P: 63 [place]: 216 QRS: -6 QRSD: 145 T: 112 QT: 414 QTc: 460 Interpretive Statements SINUS RHYTHM WITH FIRST DEGREE AV BLOCK LEFT BUNDLE BRANCH BLOCK Electronically Signed On 10-23-2018 13:09:32 EDT by Jelani Lee
[2018-10-23] MEDS ORDERED: Lisinopril 20 MG TABLET PO SCH (13:15)
[2018-10-23 13:47] VITALS: BP 164/95
[2018-10-23] MEDS ORDERED: cefTRIAXone 1,000 MG in Water for inj. (sterile) 20 ML 10 ML IVP SCH (18:00)
== END 2018-10-23 13:55 | disposition home or self-care (01) ==
LOC: EMEROOARM 14:12 → 3BNU 14:12
PROVIDERS: ADMIT Internal Medicine Nephrology; ATTEND Internal Medicine Nephrology

== ENCOUNTER 2020-11-11 10:48 | Observation (INO) ==
[2020-11-11] MEDS ORDERED: Isovue-370 500 ML BOTTLE IVP ONE (11:38)
[2020-11-11 11:50] LABS: Basophils % 0.5 %; Eosinophils # 0.1 K/mcL (0.0-0.6); Eosinophils % 1.5 %; Hematocrit 34.1 % (35.3-44.9); Hemoglobin 11.1 g/dL (11.5-15.4); Immature Granulocytes % 0.2 % (0-4); Lymphocytes # 1.7 K/mcL (0.6-4.6); Lymphocytes % 19.6 %; Mean Corpuscular HGB Conc 32.6 g/dL (31.6-35.5); Mean Corpuscular Hemoglobin 30.8 pg (28.0-33.3); Mean Corpuscular Volume 94.7 fL (83.0-100.0); Mean Platelet Volume 10.2 fL (9.4-12.4); Monocytes # 0.8 K/mcL (0.0-1.3); Monocytes % 9.6 %; Neutrophils # 5.9 K/mcL (1.6-8.9); Platelet Count 292 K/mcL (140-400); Red Cell Distribution Width 13.3 % (11.5-14.5); Segmented Neutrophils % 68.6 %; White Blood Count 8.6 K/mcL (4.3-11.1)
[2020-11-11 12:14] LABS: Alanine Aminotransferase 16 Units/L (7-52); Albumin 3.8 g/dL (3.5-5.7); Albumin/Globulin Ratio 1.8 (1.1-2.2); Alkaline Phosphatase 50 Units/L (34-104); Aspartate Amino Transferase 16 Units/L (13-39); BUN/Creatinine Ratio 20 (6-26); Bilirubin,Direct 0.1 mg/dL (0.0-0.2); Bilirubin,Indirect 0.3 mg/dL (0.0-1.0); Bilirubin,Total 0.4 mg/dL (0.3-1.0); Blood Urea Nitrogen 25 mg/dL (8-23); Calcium 9.3 mg/dL (8.6-10.3); Carbon Dioxide 31 mEq/L (23-29); Chloride 103 mEq/L (98-107); Creatine Kinase 43 Units/L (30-223); Globulin 2.1 g/dL (2.4-3.5); Glucose 187 mg/dL (70-105); Osmolality,Calculated 297 (280-300); Potassium 3.9 mEq/L (3.5-5.1); Sodium 139 mEq/L (136-145); Total Protein 5.9 g/dL (6.4-8.9); Troponin I < 0.03 ng/mL (< 0.04); eGFR For African Americans 50 (> 60); eGFR For Non-African Americans 41 (> 60)
[2020-11-11] MEDS ORDERED: Furosemide 40 MG/4 ML VIAL IVP ONE (12:25)
[2020-11-11 14:25] LABS: Bilirubin,Urine Negative (Negative); Blood,Urine Negative (Negative); Clarity,Urine Clear (Clear); Color,Urine Colorless (Yellow); Glucose,Urine (UA) Normal (Normal); Ketones,Urine Negative (Negative); Leukocyte Esterase,Urine Negative (Negative); Nitrite,Urine Negative (Negative); PH,Urine 6.5 pH Units (5.0-8.0); Protein,Urine Negative (Neg-Trace); Specific Gravity,Urine 1.009 (1.010-1.025); Urobilinogen,Urine Normal (Normal)
[2020-11-11] MEDS ORDERED: Naloxone 0.4 MG/ML INJ IVP PRN (16:03)
[2020-11-11] MEDS ORDERED: Dextrose Gel 15 GM/37.5 ML TUBE PO PRN ×2 (16:03)
[2020-11-11] MEDS ORDERED: Acetaminophen 325 MG TABLET PO PRN (16:03)
[2020-11-11] MEDS ORDERED: D5% in Water 1,000 ML IVC PRN (16:03)
[2020-11-11] MEDS ORDERED: *HR* Dextrose 50 % in Water (Vial) 50 ML VIAL IVP PRN (16:03)
[2020-11-11] MEDS ORDERED: Perflutren Lipid Microsphere 1.3 ML in 0.9 % Sodium Chloride 8.7 ML IVP PRN (16:05)
[2020-11-11] MEDS ORDERED: Potassium Chloride Elixir 20 MEQ/15 ML UDC PO ONE (16:14)
[2020-11-11] MEDS: Insulin LISPRO 300 UNITS/3 ML VIAL SUBQ SCH (18:13)
[2020-11-11] MEDS: *HR* Rivaroxaban 15 MG TABLET PO SCH (18:14)
[2020-11-11] MEDS: Furosemide 40 MG/4 ML VIAL IVP SCH (20:37)
[2020-11-11] MEDS: Insulin DETEMIR 100 UNIT/ML X5UNITS SUBQ SCH (20:48)
[2020-11-11] MEDS ORDERED: Metoprolol 100 MG TABLET PO SCH (21:00)
[2020-11-11] MEDS: carvediloL 25 MG TABLET PO SCH (21:59)
[2020-11-11] MEDS: hydrALAZINE 25 MG TABLET PO SCH (22:08)
[2020-11-11] MEDS: lisinopriL 20 MG TABLET PO SCH (22:09)
[2020-11-11] MEDS: *HR* OxyCODONE/APAP 5/325 TABLET PO PRN (22:09)
[2020-11-12 01:01] LABS: Basophils % 0.6 %; Eosinophils # 0.1 K/mcL (0.0-0.6); Eosinophils % 2.5 %; Hematocrit 32.1 % (35.3-44.9); Hemoglobin 10.5 g/dL (11.5-15.4); Immature Granulocytes % 0.2 % (0-4); Lymphocytes # 2.1 K/mcL (0.6-4.6); Lymphocytes % 40.8 %; Mean Corpuscular HGB Conc 32.7 g/dL (31.6-35.5); Mean Corpuscular Hemoglobin 30.4 pg (28.0-33.3); Mean Platelet Volume 10.3 fL (9.4-12.4); Monocytes # 0.6 K/mcL (0.0-1.3); Monocytes % 11.4 %; Neutrophils # 2.3 K/mcL (1.6-8.9); Platelet Count 280 K/mcL (140-400); Red Blood Count 3.45 M/mcL (3.82-4.97); Red Cell Distribution Width 13.5 % (11.5-14.5); Segmented Neutrophils % 44.5 %; White Blood Count 5.3 K/mcL (4.3-11.1)
[2020-11-12 01:22] LABS: BUN/Creatinine Ratio 17 (6-26); Blood Urea Nitrogen 21 mg/dL (8-23); Carbon Dioxide 31 mEq/L (23-29); Chloride 103 mEq/L (98-107); Glucose 114 mg/dL (70-105); Magnesium 1.8 mg/dL (1.6-2.6); Osmolality,Calculated 294 (280-300); Potassium 3.6 mEq/L (3.5-5.1); Sodium 140 mEq/L (136-145); Troponin I < 0.03 ng/mL (< 0.04); eGFR For African Americans 52 (> 60); eGFR For Non-African Americans 43 (> 60)
[2020-11-12 01:33] LABS: Thyroid Stimulating Hormone 4.057 mcIU/mL (0.340-5.600)
[2020-11-12] MEDS: Insulin LISPRO 300 UNITS/3 ML VIAL SUBQ SCH ×3 (07:44→16:28)
[2020-11-12] MEDS: lisinopriL 20 MG TABLET PO SCH ×2 (08:05→20:22)
[2020-11-12] MEDS: Furosemide 40 MG/4 ML VIAL IVP SCH ×2 (08:05→20:24)
[2020-11-12] MEDS: carvediloL 25 MG TABLET PO SCH ×2 (08:05→16:27)
[2020-11-12] MEDS: hydrALAZINE 25 MG TABLET PO SCH ×2 (08:05→20:22)
[2020-11-12] MEDS: *HR* OxyCODONE/APAP 5/325 TABLET PO PRN ×3 (08:06→20:22)
[2020-11-12] MEDS: NIFEdipine XL (24 HR) 30 MG TAB.ER.24 PO SCH (10:21)
[2020-11-12] MEDS: Potassium Chloride Elixir 20 MEQ/15 ML UDC PO SCH ×2 (11:18→20:42)
[2020-11-12] MEDS: Fenofibrate 54 MG TABLET PO SCH ×2 (14:54→20:40)
[2020-11-12] MEDS: polyethylene glycoL 3350 17 GM POWD.PACK PO SCH (16:27)
[2020-11-12] MEDS: *HR* Rivaroxaban 15 MG TABLET PO SCH (16:27)
[2020-11-12] MEDS: Ondansetron 4 MG/2 ML VIAL IVP PRN (20:24)
[2020-11-12] MEDS: Insulin DETEMIR 100 UNIT/ML X5UNITS SUBQ SCH (20:25)
[2020-11-13] MEDS: *HR* OxyCODONE/APAP 5/325 TABLET PO PRN (02:48)
[2020-11-13 03:11] LABS: Calcium 8.5 mg/dL (8.6-10.3); Potassium 3.9 mEq/L (3.5-5.1)
[2020-11-13] MEDS ORDERED: *HR* OxyCODONE/APAP 10/325 TABLET PO ONE (08:30)
[2020-11-13] MEDS: Furosemide 40 MG/4 ML VIAL IVP SCH (09:26)
[2020-11-13] MEDS: NIFEdipine XL (24 HR) 30 MG TAB.ER.24 PO SCH (09:27)
[2020-11-13] MEDS: Fenofibrate 54 MG TABLET PO SCH ×2 (09:27→21:15)
[2020-11-13] MEDS: carvediloL 25 MG TABLET PO SCH ×2 (09:27→17:24)
[2020-11-13] MEDS: lisinopriL 20 MG TABLET PO SCH ×2 (09:27→21:15)
[2020-11-13] MEDS: hydrALAZINE 25 MG TABLET PO SCH ×2 (09:27→21:15)
[2020-11-13] MEDS: polyethylene glycoL 3350 17 GM POWD.PACK PO SCH (09:28)
[2020-11-13] MEDS: Potassium Chloride Elixir 20 MEQ/15 ML UDC PO SCH ×2 (09:28→21:15)
[2020-11-13] MEDS: Insulin LISPRO 300 UNITS/3 ML VIAL SUBQ SCH ×3 (09:32→17:24)
[2020-11-13] MEDS: *HR* OxyCODONE Immed Rel 5 MG TABLET PO PRN (17:23)
[2020-11-13] MEDS: Torsemide 20 MG TABLET PO SCH (17:24)
[2020-11-13] MEDS: *HR* Rivaroxaban 15 MG TABLET PO SCH (17:24)
[2020-11-13] MEDS ORDERED: Torsemide 20 MG TABLET PO SCH (21:00)
[2020-11-13] MEDS: Insulin DETEMIR 100 UNIT/ML X5UNITS SUBQ SCH (21:22)
[2020-11-14] MEDS: Ondansetron 4 MG/2 ML VIAL IVP PRN (00:39)
[2020-11-14] MEDS: *HR* OxyCODONE/APAP 5/325 TABLET PO PRN (00:40)
[2020-11-14 01:41] LABS: Basophils % 0.6 %; Eosinophils # 0.1 K/mcL (0.0-0.6); Eosinophils % 2.8 %; Hematocrit 30.1 % (35.3-44.9); Hemoglobin 9.9 g/dL (11.5-15.4); Immature Granulocytes % 0.2 % (0-4); Lymphocytes # 2.3 K/mcL (0.6-4.6); Lymphocytes % 45.2 %; Mean Corpuscular HGB Conc 32.9 g/dL (31.6-35.5); Mean Corpuscular Hemoglobin 30.9 pg (28.0-33.3); Mean Corpuscular Volume 94.1 fL (83.0-100.0); Mean Platelet Volume 10.6 fL (9.4-12.4); Monocytes # 0.5 K/mcL (0.0-1.3); Monocytes % 10.8 %; Platelet Count 258 K/mcL (140-400); Red Cell Distribution Width 13.3 % (11.5-14.5); Segmented Neutrophils % 40.4 %
[2020-11-14 01:56] LABS: Calcium 8.5 mg/dL (8.6-10.3); Potassium 4.3 mEq/L (3.5-5.1)
[2020-11-14] MEDS: *HR* OxyCODONE Immed Rel 5 MG TABLET PO PRN ×3 (05:37→21:31)
[2020-11-14] MEDS: Torsemide 20 MG TABLET PO SCH ×2 (08:44→17:12)
[2020-11-14] MEDS: Potassium Chloride Elixir 20 MEQ/15 ML UDC PO SCH (08:44)
[2020-11-14] MEDS: lisinopriL 20 MG TABLET PO SCH ×2 (08:48→21:29)
[2020-11-14] MEDS: NIFEdipine XL (24 HR) 30 MG TAB.ER.24 PO SCH (08:48)
[2020-11-14] MEDS: Fenofibrate 54 MG TABLET PO SCH ×2 (08:48→21:29)
[2020-11-14] MEDS: hydrALAZINE 25 MG TABLET PO SCH ×2 (08:48→21:31)
[2020-11-14] MEDS: carvediloL 25 MG TABLET PO SCH ×2 (08:48→17:12)
[2020-11-14] MEDS: polyethylene glycoL 3350 17 GM POWD.PACK PO SCH (08:49)
[2020-11-14] MEDS: Insulin LISPRO 300 UNITS/3 ML VIAL SUBQ SCH ×3 (08:56→17:12)
[2020-11-14] MEDS ORDERED: Sennosides/Docusate Sodium TABLET PO ONE (15:12)
[2020-11-14] MEDS: *HR* Rivaroxaban 15 MG TABLET PO SCH (17:12)
[2020-11-14] MEDS: Insulin DETEMIR 100 UNIT/ML X5UNITS SUBQ SCH (21:36)
[2020-11-15] MEDS: Potassium Chloride Elixir 20 MEQ/15 ML UDC PO SCH ×2 (03:34→09:00)
[2020-11-15] MEDS: *HR* OxyCODONE Immed Rel 5 MG TABLET PO PRN ×3 (03:38→22:56)
[2020-11-15 04:44] LABS: Calcium 8.7 mg/dL (8.6-10.3); Potassium 4.4 mEq/L (3.5-5.1)
[2020-11-15] MEDS: carvediloL 25 MG TABLET PO SCH ×2 (08:58→17:13)
[2020-11-15] MEDS: Torsemide 20 MG TABLET PO SCH ×2 (08:58→17:13)
[2020-11-15] MEDS: Fenofibrate 54 MG TABLET PO SCH ×2 (08:59→20:08)
[2020-11-15] MEDS: NIFEdipine XL (24 HR) 30 MG TAB.ER.24 PO SCH (08:59)
[2020-11-15] MEDS: hydrALAZINE 25 MG TABLET PO SCH ×2 (08:59→20:08)
[2020-11-15] MEDS: lisinopriL 20 MG TABLET PO SCH ×2 (08:59→20:08)
[2020-11-15] MEDS: Insulin LISPRO 300 UNITS/3 ML VIAL SUBQ SCH ×3 (09:00→17:12)
[2020-11-15] MEDS: polyethylene glycoL 3350 17 GM POWD.PACK PO SCH (09:00)
[2020-11-15 10:01] LABS: Bacteria,Urine Few per hpf (None-Few); Bilirubin,Urine Negative (Negative); Blood,Urine Trace (Negative); Budding Yeast,Urine Few per hpf (None Seen); Clarity,Urine Ex.Turbid (Clear); Color,Urine Yellow (Yellow); Glucose,Urine (UA) Normal (Normal); Ketones,Urine Negative (Negative); Leukocyte Esterase,Urine Large (Negative); Nitrite,Urine Negative (Negative); Protein,Urine Trace mg/dL (Neg-Trace); Specific Gravity,Urine 1.006 (1.010-1.025); Urobilinogen,Urine Normal (Normal); WBC,Urine TNTC per hpf (0-3)
[2020-11-15] MEDS: cefTRIAXone 1,000 MG in Water for inj. (sterile) 10 ML IVP SCH (12:49)
[2020-11-15] MEDS: *HR* OxyCODONE/APAP 5/325 TABLET PO PRN (17:13)
[2020-11-15] MEDS: *HR* Rivaroxaban 15 MG TABLET PO SCH (17:13)
[2020-11-15] MEDS: Insulin DETEMIR 100 UNIT/ML X5UNITS SUBQ SCH (20:08)
[2020-11-16 02:11] LABS: Basophils % 0.4 %; Eosinophils # 0.1 K/mcL (0.0-0.6); Hematocrit 30.6 % (35.3-44.9); Hemoglobin 10.1 g/dL (11.5-15.4); Immature Granulocytes % 0.2 % (0-4); Lymphocytes # 1.7 K/mcL (0.6-4.6); Lymphocytes % 36.4 %; Mean Corpuscular Hemoglobin 30.8 pg (28.0-33.3); Mean Corpuscular Volume 93.3 fL (83.0-100.0); Mean Platelet Volume 10.3 fL (9.4-12.4); Monocytes # 0.5 K/mcL (0.0-1.3); Monocytes % 9.8 %; Neutrophils # 2.4 K/mcL (1.6-8.9); Platelet Count 265 K/mcL (140-400); Red Blood Count 3.28 M/mcL (3.82-4.97); Red Cell Distribution Width 13.2 % (11.5-14.5); Segmented Neutrophils % 51.2 %; White Blood Count 4.6 K/mcL (4.3-11.1)
[2020-11-16 02:27] LABS: Potassium 3.8 mEq/L (3.5-5.1)
[2020-11-16] MEDS: cefTRIAXone 1,000 MG in Water for inj. (sterile) 10 ML IVP SCH (08:12)
[2020-11-16] MEDS: polyethylene glycoL 3350 17 GM POWD.PACK PO SCH (08:12)
[2020-11-16] MEDS: *HR* OxyCODONE Immed Rel 5 MG TABLET PO PRN ×2 (08:13→19:56)
[2020-11-16] MEDS: carvediloL 25 MG TABLET PO SCH ×2 (08:13→16:11)
[2020-11-16] MEDS: NIFEdipine XL (24 HR) 30 MG TAB.ER.24 PO SCH (08:14)
[2020-11-16] MEDS: lisinopriL 20 MG TABLET PO SCH ×2 (08:14→19:56)
[2020-11-16] MEDS: Fenofibrate 54 MG TABLET PO SCH ×2 (08:14→19:56)
[2020-11-16] MEDS: hydrALAZINE 25 MG TABLET PO SCH ×2 (08:15→19:57)
[2020-11-16] MEDS: Torsemide 20 MG TABLET PO SCH ×2 (08:15→16:12)
[2020-11-16] MEDS: Insulin LISPRO 300 UNITS/3 ML VIAL SUBQ SCH ×3 (08:15→16:09)
[2020-11-16] MEDS: *HR* OxyCODONE/APAP 5/325 TABLET PO PRN (09:51)
[2020-11-16] MEDS: Ondansetron 4 MG/2 ML VIAL IVP PRN (14:30)
[2020-11-16] MEDS ORDERED: Ipratropium/Albuterol Neb 3 ML IH PRN (14:45)
[2020-11-16] MEDS: *HR* Rivaroxaban 15 MG TABLET PO SCH (16:11)
[2020-11-16] MEDS: Insulin DETEMIR 100 UNIT/ML X5UNITS SUBQ SCH (21:00)
[2020-11-17] MEDS: *HR* OxyCODONE Immed Rel 5 MG TABLET PO PRN (03:57)
[2020-11-17 05:34] LABS: Basophils % 0.8 %; Eosinophils # 0.1 K/mcL (0.0-0.6); Eosinophils % 3.1 %; Hematocrit 33.2 % (35.3-44.9); Hemoglobin 10.4 g/dL (11.5-15.4); Immature Granulocytes % 0.3 % (0-4); Lymphocytes # 1.5 K/mcL (0.6-4.6); Lymphocytes % 37.6 %; Mean Corpuscular HGB Conc 31.3 g/dL (31.6-35.5); Mean Corpuscular Hemoglobin 29.5 pg (28.0-33.3); Mean Corpuscular Volume 94.3 fL (83.0-100.0); Mean Platelet Volume 10.6 fL (9.4-12.4); Monocytes # 0.5 K/mcL (0.0-1.3); Monocytes % 12.1 %; Neutrophils # 1.8 K/mcL (1.6-8.9); Platelet Count 283 K/mcL (140-400); Red Blood Count 3.52 M/mcL (3.82-4.97); Red Cell Distribution Width 13.1 % (11.5-14.5); Segmented Neutrophils % 46.1 %; White Blood Count 3.9 K/mcL (4.3-11.1)
[2020-11-17 05:46] LABS: Calcium 9.1 mg/dL (8.6-10.3); Potassium 3.7 mEq/L (3.5-5.1)
[2020-11-17] MEDS: NIFEdipine XL (24 HR) 30 MG TAB.ER.24 PO SCH (09:14)
[2020-11-17] MEDS: Fenofibrate 54 MG TABLET PO SCH (09:14)
[2020-11-17] MEDS: hydrALAZINE 25 MG TABLET PO SCH (09:14)
[2020-11-17] MEDS: cefTRIAXone 1,000 MG in Water for inj. (sterile) 10 ML IVP SCH (09:15)
[2020-11-17] MEDS: Torsemide 20 MG TABLET PO SCH (09:15)
[2020-11-17] MEDS: carvediloL 25 MG TABLET PO SCH (09:15)
[2020-11-17] MEDS: lisinopriL 20 MG TABLET PO SCH (09:15)
[2020-11-17] MEDS: polyethylene glycoL 3350 17 GM POWD.PACK PO SCH (09:16)
[2020-11-17] MEDS: Insulin LISPRO 300 UNITS/3 ML VIAL SUBQ SCH ×2 (09:16→11:54)
[2020-11-17 09:44] VITALS: BP 124/70
[2020-11-17] MEDS: *HR* OxyCODONE/APAP 5/325 TABLET PO PRN (11:43)
[2020-11-19 02:23] LABS: Lambda Qnt Free Light Chains 11.03 mg/L (5.71-26.30)
[2020-11-19 10:50] LABS: ANA IgG by ELISA NONE DETECTED (None Detected); Kappa Qnt Free Light Chains 22.76 mg/L (3.30-19.40); Serine Protease-3 Antibody 0 AU/mL (0-19)
[2020-11-21 02:22] LABS: Alpha 2 Globulin (PEP) 0.69 g/dL (0.48-1.05); Beta Globulin (PEP) 0.62 g/dL (0.48-1.10)
[2020-11-21 09:24] LABS: IFE Reflexed IFE Done
== END 2020-11-17 14:35 | disposition home health service (06) ==
LOC: EMEROOARM 10:48 → 3BNU 10:48 → SUATTDRO 15:29 → 3ANU 15:32
PROVIDERS: ADMIT Pharmacist; ATTEND Internal Medicine

== ENCOUNTER 2021-12-03 13:27 | Observation (INO) ==
[2021-12-03 14:24] LABS: Basophils # 0.1 K/mcL (0.0-0.2); Basophils % 0.7 %; Eosinophils # 0.2 K/mcL (0.0-0.6); Eosinophils % 2.1 %; Hemoglobin 12.2 g/dL (11.5-15.4); Immature Granulocytes % 0.1 % (0-4); Lymphocytes # 2.2 K/mcL (0.6-4.6); Lymphocytes % 30.5 %; Mean Corpuscular HGB Conc 32.1 g/dL (31.6-35.5); Mean Corpuscular Volume 93.6 fL (83.0-100.0); Mean Platelet Volume 10.4 fL (9.4-12.4); Monocytes # 0.5 K/mcL (0.0-1.3); Monocytes % 6.7 %; Neutrophils # 4.2 K/mcL (1.6-8.9); Platelet Count 280 K/mcL (140-400); Red Blood Count 4.06 M/mcL (3.82-4.97); Red Cell Distribution Width 13.9 % (11.5-14.5); Segmented Neutrophils % 59.9 %
[2021-12-03 14:41] LABS: Calcium 10.1 mg/dL (8.6-10.3); Potassium 4.1 mEq/L (3.5-5.1)
[2021-12-03 14:45] LABS: Troponin I 0.04 ng/mL (< 0.04)
[2021-12-03] MEDS ORDERED: 0.9 % Sodium Chloride 500 ML IVC ONE (15:27)
[2021-12-03] MEDS ORDERED: Iopamidol - 370 500 ML MLS IVP ONE (15:33)
[2021-12-03] MEDS ORDERED: Ondansetron 4 MG/2 ML VIAL IVP STA (15:35)
[2021-12-03] MEDS ORDERED: Morphine Sulfate 2 MG/ML SYRINGE IVP ONE (15:35)
[2021-12-03 15:53] LABS: Albumin/Globulin Ratio 1.5 (1.1-2.2); Bilirubin,Direct 0.1 mg/dL (0.0-0.2); Bilirubin,Indirect 0.4 mg/dL (0.0-1.0); Bilirubin,Total 0.5 mg/dL (0.3-1.0); Globulin 2.6 g/dL (2.4-3.5); Total Protein 6.6 g/dL (6.4-8.9)
[2021-12-03 15:58] LABS: Basophils % 0.5 %; Eosinophils # 0.1 K/mcL (0.0-0.6); Eosinophils % 2.1 %; Hematocrit 35.1 % (35.3-44.9); Hemoglobin 11.2 g/dL (11.5-15.4); Immature Granulocytes % 0.2 % (0-4); Lymphocytes # 2.4 K/mcL (0.6-4.6); Lymphocytes % 35.5 %; Mean Corpuscular HGB Conc 31.9 g/dL (31.6-35.5); Mean Corpuscular Hemoglobin 29.7 pg (28.0-33.3); Mean Corpuscular Volume 93.1 fL (83.0-100.0); Monocytes # 0.6 K/mcL (0.0-1.3); Monocytes % 8.3 %; Neutrophils # 3.5 K/mcL (1.6-8.9); Platelet Count 256 K/mcL (140-400); Red Blood Count 3.77 M/mcL (3.82-4.97); Red Cell Distribution Width 13.9 % (11.5-14.5); Segmented Neutrophils % 53.4 %; White Blood Count 6.6 K/mcL (4.3-11.1)
[2021-12-03 16:20] LABS: INR 1.6; Prothrombin Time 18.3 Seconds (9.4-12.1)
[2021-12-03 16:23] LABS: Activated Partial Thrombo Time 40.9 Seconds (26.0-36.0)
[2021-12-03 16:31] LABS: Bacteria,Urine Few per hpf (None-Few); Bilirubin,Urine Negative (Negative); Blood,Urine Negative (Negative); Clarity,Urine Turbid (Clear); Color,Urine Light-Yellow (Yellow); Glucose,Urine (UA) Normal (Normal); Hyaline Casts,Urine Few per lpf (None Seen); Ketones,Urine Negative (Negative); Leukocyte Esterase,Urine Large (Negative); Nitrite,Urine Negative (Negative); Protein,Urine 30 mg/dL (Neg-Trace); Specific Gravity,Urine 1.013 (1.010-1.025); Squamous Epithelial Cell,Urine Few per hpf (None-Few); Urobilinogen,Urine Normal (Normal); WBC,Urine TNTC per hpf (0-3)
[2021-12-03] MEDS ORDERED: *HR* OxyCODONE Immed Rel 5 MG TABLET PO STA (16:46)
[2021-12-03] MEDS ORDERED: Aspirin 325 MG TABLET PO ONE (18:08)
[2021-12-03] MEDS ORDERED: *HR* Heparin 5,000 UNIT/ML VIAL IVP PRN ×2 (18:33)
[2021-12-03] MEDS ORDERED: *HR* Heparin 5,000 UNIT/ML VIAL IVP ONE (18:33)
[2021-12-03] MEDS ORDERED: Heparin 25,000UNIT/250ML 1/2NS 25,000 UNIT/250 ML IV.SOLN IVC SCH ×2 (18:45→18:51)
[2021-12-03 19:45] LABS: Hematocrit 33.8 % (35.3-44.9); Hemoglobin 10.7 g/dL (11.5-15.4); Mean Corpuscular HGB Conc 31.7 g/dL (31.6-35.5); Mean Corpuscular Volume 94.7 fL (83.0-100.0); Mean Platelet Volume 10.4 fL (9.4-12.4); Platelet Count 246 K/mcL (140-400); Red Blood Count 3.57 M/mcL (3.82-4.97); Red Cell Distribution Width 14.1 % (11.5-14.5); White Blood Count 6.7 K/mcL (4.3-11.1)
[2021-12-03] MEDS ORDERED: Perflutren Lipid Microsphere 1.3 ML in 0.9 % Sodium Chloride 8.7 ML IVP PRN (21:19)
[2021-12-03 21:22] LABS: INR 1.6; Prothrombin Time 17.9 Seconds (9.4-12.1)
[2021-12-03 21:26] LABS: D-Dimer < 215 ng/mLFEU (0-500)
[2021-12-03] MEDS: cefTRIAXone 1,000 MG in 0.9 % Sodium Chloride Mini Bag 100 ML IVPB SCH (22:35)
[2021-12-03] MEDS ORDERED: Nitroglycerin 0.4 MG TAB.SUBL SL PRN (23:22)
[2021-12-03] MEDS ORDERED: Ondansetron 4 MG/2 ML VIAL IVP PRN (23:23)
[2021-12-03] MEDS ORDERED: Naloxone 0.4 MG/ML INJ IVP PRN (23:23)
[2021-12-03] MEDS ORDERED: Acetaminophen 325 MG TABLET PO PRN (23:23)
[2021-12-03] MEDS ORDERED: D5% in Water 1,000 ML IVC PRN (23:24)
[2021-12-03] MEDS ORDERED: *HR* Dextrose 50 % in Water (Syg) 50 ML SYRINGE IVP PRN (23:24)
[2021-12-03] MEDS ORDERED: Dextrose Gel 15 GM/37.5 ML TUBE PO PRN ×2 (23:24)
[2021-12-03] MEDS: Insulin LISPRO 300 UNITS/3 ML VIAL SUBQ SCH (23:55)
[2021-12-04] MEDS: *HR* OxyCODONE/APAP 5/325 TABLET PO PRN ×3 (00:55→19:25)
[2021-12-04 02:41] LABS: Hematocrit 32.6 % (35.3-44.9); Hemoglobin 10.4 g/dL (11.5-15.4); Mean Corpuscular HGB Conc 31.9 g/dL (31.6-35.5); Mean Corpuscular Volume 93.9 fL (83.0-100.0); Mean Platelet Volume 10.7 fL (9.4-12.4); Platelet Count 237 K/mcL (140-400); Red Blood Count 3.47 M/mcL (3.82-4.97); Red Cell Distribution Width 14.2 % (11.5-14.5)
[2021-12-04 02:47] LABS: INR 1.3
[2021-12-04 02:50] LABS: Activated Partial Thrombo Time 103.5 Seconds (26.0-36.0)
[2021-12-04 03:03] LABS: Calcium 9.1 mg/dL (8.6-10.3); Chol/HDL Ratio 3.7 (0-4.9); Magnesium 1.8 mg/dL (1.6-2.6); Potassium 3.8 mEq/L (3.5-5.1)
[2021-12-04 03:42] LABS: Folate > 22.3 ng/mL (3.0-16.0); Thyroid Stimulating Hormone 4.504 mcIU/mL (0.340-5.600); Troponin I 0.03 ng/mL (< 0.04); Vitamin B12 393 pg/mL (250-1100)
[2021-12-04] MEDS ORDERED: *HR* OxyCODONE/APAP 5/325 TABLET PO ONE (03:51)
[2021-12-04 04:26] LABS: Estimated Average Glucose 166 mg/dl; Hemoglobin A1C 7.4 %
[2021-12-04] MEDS: Insulin LISPRO 300 UNITS/3 ML VIAL SUBQ SCH ×3 (05:25→17:15)
[2021-12-04] MEDS ORDERED: Regadenoson 0.4 MG/5 ML SYRINGE IVP ONE (07:27)
[2021-12-04] MEDS ORDERED: Fenofibrate 54 MG TABLET PO SCH (09:00)
[2021-12-04] MEDS ORDERED: NIFEdipine XL (24 HR) 30 MG TAB.ER.24 PO SCH (09:00)
[2021-12-04] MEDS ORDERED: hydrALAZINE 25 MG TABLET PO SCH (09:00)
[2021-12-04] MEDS ORDERED: Aspirin Enteric Coated 81 MG Tablet PO SCH (09:00)
[2021-12-04] MEDS ORDERED: Torsemide 20 MG TABLET PO SCH (09:00)
[2021-12-04] MEDS: cefTRIAXone 1,000 MG in 0.9 % Sodium Chloride Mini Bag 100 ML IVPB SCH (12:09)
[2021-12-04 17:19] VITALS: BP 183/84; PULSE 78; TEMP 98; O2SAT 94
[2021-12-04] MEDS ORDERED: Insulin DETEMIR 100 UNIT/ML X5UNITS SUBQ SCH (21:00)
[2021-12-04] MEDS ORDERED: Potassium Chloride Elixir 20 MEQ/15 ML UDC PO SCH (21:00)
== END 2021-12-04 19:40 | disposition home or self-care (01) ==
LOC: 2ANU 13:27 → EMEROOARM 13:27 → SUATTDRO 21:07 → 2ANU 21:42
PROVIDERS: ADMIT Student in an Organized Health Care Education/Training Program; ATTEND Student in an Organized Health Care Education/Training Program